=== PATIENT | female | born 1930 | race Caucasian/White ===

== ENCOUNTER 2019-01-20 17:05 | Inpatient (IN) ==
[2019-01-20] MEDS ORDERED: ASPIRIN PO ONE (17:17)
[2019-01-20 18:15] LABS: BASO# 0.04 X1000 (0.0-0.2); BASO% 0.5 % (0.0-0.8); EOS# 0.15 X1000 (0.0-0.7); EOS% 1.8 % (0.0-10.0); HEMATOCRIT 38.4 % (37.0-47.0); HEMOGLOBIN 12.7 g/dL (12.0-16.0); IMM GRAN# 0.01 X1000 (0.0-0.04); IMM GRAN% 0.1 % (0.0-0.5); LYMPH# 1.54 X1000 (1.2-3.4); LYMPH% 18.9 % (20.5-51.1); MCH 34.5 PG (27-31); MCHC 33.1 g/dL (33-37); MCV 104.3 FL (81-99); MONO# 0.87 X1000 (0.11-0.59); MONO% 10.7 % (1.7-9.3); MPV 11.2 FL (7.4-10.4); NEUT# 5.55 X1000 (1.4-6.5); PLT 238 X1000 (130-400); RBC 3.68 XMIL (4.2-5.4); RDW 14.8 % (11.5-14.5); WBC 8.16 X1000 (4.8-10.8)
[2019-01-20 18:34] LABS: ALBUMIN 4.2 g/dL (3.5-5.0); CALCIUM 8.7 mg/dL (8.8-10.2); POTASSIUM 3.5 mmol/L (3.5-5.1); TOTAL BILIRUBIN 0.7 mg/dL (0.20-1.00); TOTAL PROTEIN 6.4 g/dL (6.3-8.3)
[2019-01-20 18:35] LABS: INR 2.99; PROTIME 32.9 Seconds (11.0-16.0); PTT 49.6 Seconds (22.3-41.8)
--- NOTE | 2019-01-20 18:41 | PROVIDER DOCUMENTATION ---
This chart was entered by Leobardo Jones Scribe, acting as scribe for Chidi Parks DO. HPI-Cardiac General - General Chief Complaint: Shortness of Breath Stated Complaint: HEART POUNDING / SOB Time Seen by Provider: 01/20/19 17:31 Source: patient Allergies/Adverse Reactions: Patient Allergies Allergy/AdvReac Type Severity Reaction Status Date / Time No Known Allergies Allergy Verified 02/17/17 10:33 Home Medications: Home Medication List Medication Instructions Recorded Confirmed Last Taken Type Acetaminophen with Codeine 1 ea PO Q4H PRN PRN #12 tab 02/17/17 Unknown Rx [Tylenol with Codeine #3] Sulfamethoxazole/Trimethoprim 1 ea PO BID #10 tab 02/17/17 Unknown Rx [Bactrim Ds Tablet] - History of Present Illness-Cardiac Nature of Presenting Problem: 88 yof presents to the ed with c/o chest pains (middle). pt states started last night and went away pt didn't tell family last night , then started back this morning. pt states " hard to breath." pt states no stroke symptoms. Location: reports: substernal Quality of Pain: reports: pressure ("heavyness") Onset/Duration: last night Timing: intermittent Context/Activities at Onset: reports: none Modifying Factors: improves with: nothing Palpitation Quality: N/A History of arrythmia: reports: A-Fib Recent use of:: reports: no stimulants Nitro Today/Relief: reports: no nitro taken today Aspirin Treatment Today: reports: no aspirin today Associated Symptoms: reports: shortness of breath. denies: abdominal pain, back pain, diaphoresis, edema, fever/chills, rash Similar Symptoms Previously?: No Recently Seen Here or By Another Healthcare Provider: No Review of Systems - Adult - REVIEW OF SYSTEMS - ADULT Constitutional: reports: no symptoms reported. denies: chills, fever Eyes: reports: no symptoms reported Ears, Nose, Mouth & Throat: reports: no symptoms reported Cardiovascular: reports: see HPI, chest pain Respiratory: reports: see HPI, shortness of breath. denies: dyspnea on exertion, wheezing Gastrointestinal: denies: abdominal pain, diarrhea, nausea, vomiting Genitourinary: reports: no symptoms reported Musculoskeletal: reports: no symptoms reported Integumentary: reports: no symptoms reported Neurological: reports: no symptoms reported Psychiatric: reports: no symptoms reported Endocrine: reports: no symptoms reported Hematologic/Lymphatic: reports: no symptoms reported Allergic/Immunologic: reports: no symptoms reported All Other Systems: Reviewed and Negative Past History - Adult - PAST MEDICAL HISTORY-ADULT Review of Records: reports: Old Records Reviewed, Nursing Assessment Review, Medications Reviewed, Social history reviewed & non-contributory. Major Childhood Illnesses: reports: denies history Cardiovascular: reports: A-Fib, HTN Respiratory: reports: denies history Gastrointestinal: reports: denies history Obstetrical/Gynecological: reports: denies history Genitourinary: reports: denies history Musculoskeletal: reports: denies history Neurological: reports: denies history Endocrine/Immune: reports: Diabetes Other Conditions: reports: denies history - PRIOR SURGERIES/PROCEDURES Surgical/Procedure History: reports: cholecystectomy - IMMUNIZATION STATUS Childhood Immunizations: See Nurse Assessment Flu Vaccine: See Nurse Assessment - FAMILY HISTORY Family History: reviewed, not pertinent - SOCIAL HISTORY Smoking: denies Substance Use: denies Living Situation: family Physical Exam-General - PHYSICAL EXAM-ADULT Initial Vital Signs Reviewed: Yes - CONSTITUTIONAL General Appearance: appears well, alert, mild distress - EYES Eyes: PERRL/EOMI (Lt eye is dilated due to injury can not see out of Lt eye / Rt eye reactive) - HEAD, EARS, NOSE, MOUTH & THROAT HENMT: moist mucous membranes, normal ENT inspection, TMs normal - NECK Neck: non-tender, full range of motion, supple - RESPIRATORY Respiratory: chest non-tender, normal breath sounds, no pleuratic chest pain, no respiratory distress, no accessory muscle use, rales (at the base) - CARDIOVASCULAR Cardiovascular: normal peripheral pulses, regular rate, rhythm, no edema, no gallop, no JVD, no murmur - CHEST (BREASTS) Chest/Breast: deferred - GASTROINTESTINAL (ABDOMEN) Abdominal Exam: normal bowel sounds, non tender, soft, no organomegaly, no pulsatile mass - GENITOURINARY Female Genitalia/Pelvic Exam: deferred Rectal Exam: deferred Hemoccult Exam: deferred - LYMPHATIC Lymphatic: no adenopathy - MUSCULOSKELETAL Back Exam: normal inspection, no CVA tenderness, no vertebral tenderness Extremity: normal range of motion, non-tender, normal gait, normal inspection, no pedal edema - SKIN Integumentary: normal color, normal turgor, warm/dry - NEUROLOGIC Neurologic: grossly normal, no motor/sensory deficits - PSYCHIATRIC Psych/Mental Status: normal mood/affect, normal thought content, normal thought process, oriented x 3 - HEART Score HEART Score: History: Slightly Suspicious HEART Score: ECG: Normal HEART Score: Age: > or = 65 Years HEART Score: Risk Factors for Atherosclerotic Disease: 1 or 2 Risk Factors HEART Score: Troponin: < or = Normal Limit Total HEART Score:: 3 Progress - PLAN OF CARE/RESULTS Progress/Plan/Lab Results: Vital Signs - 8 hr 01/20/19 17:09 Pulse Rate 86 Respiratory Rate 19 Blood Pressure 198/82 O2 Sat by Pulse Oximetry 96 Laboratory Results - last 24 hr 01/20/19 01/20/19 01/20/19 17:28 17:28 17:28 WBC 8.16 RBC 3.68 L Hgb 12.7 Hct 38.4 MCV 104.3 H MCH 34.5 H MCHC 33.1 RDW Std Deviation 14.8 H Plt Count 238 MPV 11.2 H Immature Gran % (Auto) 0.1 Neut % (Auto) 68.0 Lymph % (Auto) 18.9 L [place] % (Auto) 10.7 H Eos % (Auto) 1.8 Baso % (Auto) 0.5 Immature Gran # (Auto) 0.01 Neut # (Auto) 5.55 Lymph # (Auto) 1.54 [place] # (Auto) 0.87 H Eos # (Auto) 0.15 Baso # (Auto) 0.04 PT INR PTT (Actin FS) Sodium 142 Potassium 3.5 Chloride 107 Carbon Dioxide 20 L Anion Gap 15 BUN 14 Creatinine 1.0 H Estimated GFR/1.73 m2 52 BUN/Creatinine Ratio 14 Glucose 143 H Calculated Osmolality 286 Calcium 8.7 L Total Bilirubin 0.70 AST 48 H ALT 39 H Alkaline Phosphatase 101 Creatine Kinase 70 Troponin T [id number] Pept 3577 H Total Protein 6.4 Albumin 4.2 Globulin 2.0 Albumin/Globulin Ratio 2.0 01/20/19 01/20/19 17:28 17:28 WBC RBC Hgb Hct MCV MCH MCHC RDW Std Deviation Plt Count MPV Immature Gran % (Auto) Neut % (Auto) Lymph % (Auto) [place] % (Auto) Eos % (Auto) Baso % (Auto) Immature Gran # (Auto) Neut # (Auto) Lymph # (Auto) [place] # (Auto) Eos # (Auto) Baso # (Auto) PT 32.9 H INR 2.99 PTT (Actin FS) 49.6 H Sodium Potassium Chloride Carbon Dioxide Anion Gap BUN Creatinine Estimated GFR/1.73 m2 BUN/Creatinine Ratio Glucose Calculated Osmolality Calcium Total Bilirubin AST ALT Alkaline Phosphatase Creatine Kinase Troponin T < 0.010 [id number]-[id number] Pept Total Protein Albumin Globulin Albumin/Globulin Ratio Orders Category Date Time Status Cardiac Monitoring DIRECTED Care 01/20/19 17:17 Completed Oxygen Therapy- ED Nursing DIRECTED Care 01/20/19 17:17 Active Saline Loc NOW Care 01/20/19 17:17 Completed CHEST-2 VIEWS [RAD] Stat Exams 01/20/19 17:17 Taken CBC WITH ELECTRONIC DIFF [HEME] Stat Lab 01/20/19 17:28 Completed CK PROFILE [SP CHEM] Stat Lab 01/20/19 17:28 Completed COMPREHENSIVE METABOLIC PANEL [CHEM] Stat Lab 01/20/19 17:28 Completed PRO B-NATRIURETIC PEPTIDE Stat Lab 01/20/19 17:28 Completed PROTIME WITH INR [COAG] Stat Lab 01/20/19 17:28 Completed PTT [COAG] Stat Lab 01/20/19 17:28 Completed TROPONIN T Stat Lab 01/20/19 17:28 Completed Aspirin Med 01/20/19 17:17 Discontinued 325 mg PO NOW ONE Furosemide [Lasix] Med 01/20/19 18:46 Discontinued 20 mg IV NOW ONE CP/SOB/Palp >45 yrs of Age Stat Oth 01/20/19 17:17 Ordered EKG [EKG] Stat Ther 01/20/19 17:17 Ordered Result Diagrams: 01/20/19 17:28 01/20/19 17:28 - REASSESSMENT Reassessment #1 Time Reassessed: 18:38 Status: improving (no pin at this time) - EKG 1 Time of EKG reading by physician:: 17:45 EKG Read and Signed by:: Chidi Parks EKG Interpretation (*Must complete 3 of following elements*): Abnormal Rate: 67 Rhythm: Atrial fibrillation [place]: normal QRS: normal [place] Interval: normal ST Wave: normal - CONSULTS/PCP/HOSPITALIST Notification Time Discussed: 18:55 Consult Disposition: Will see in ED - CHANGE OF SHIFT REPORT (ED Provider) 1 Items Pending: Labs Departure - Departure Date of Disposition Decision: 01/20/19 Time of Disposition Decision: 18:55 DIAGNOSIS: CHF (congestive heart failure) Qualifiers: Heart failure type: other Qualified Code(s): I50.9 - Heart failure, unspecified Disposition: ADMITTED INPATIENT 09 Certified Medical Emergency: Emergent Condition: Fair - Critical Care Note This patient required my direct & personal management of CC.: No Attestation - Physician/ CHRIS Attestation Patient care was provided by Advanced Practice Provider:: No The physician spent face to face time with patient:: Yes Advanced Practice Provider documentation review:: Supervising physician onsite and consulted in the evaluation and care of this patient. The physician did have a face to face encounter with the patient. This chart was documented by the indicated scribe, (Leobardo Jones, Linda) and accurately reflects the services I performed and decisions made by , Chidi Parks DO, as attested by the provider's signature.
[2019-01-20] MEDS ORDERED: LASIX IV ONE (18:46)
[2019-01-20] MEDS ORDERED: ZOFRAN IV PRN ×2 (18:53→18:55)
[2019-01-20] MEDS ORDERED: TYLENOL PO PRN ×2 (18:53→18:55)
--- NOTE | 2019-01-20 18:56 | Diag Imaging Result Doc PS360 ---
EXAM: CHEST-2 VIEWS - 01/20/2019 HISTORY: sob palpitations TECHNIQUE: Chest two views COMPARISON: None. FINDINGS: Heart size appears mildly enlarged. There is mild interstitial marking prominence which may relate to scarring/fibrosis. There is possibly a small amount of focal infiltrate at the posterior base of the chest which is most apparent on the lateral view. There is no substantial pleural effusion or pneumothorax identified. There is thoracic spondylosis noted. IMPRESSION: Mild cardiomegaly. Apparent mild interstitial scarring/fibrosis. Possible small area of pneumonia at posterior base of chest. Electronically signed by Mainor Barnes 01/20/2019 6:54 PM
--- NOTE | 2019-01-20 19:49 | HISTORY AND PHYSICAL ---
CHIEF COMPLAINT: Shortness of breath. HISTORY OF PRESENT ILLNESS: The patient is a very pleasant 88-year-old female who has a known history of atrial fibrillation. She takes Coumadin for this. She has no previous diagnosis of [place] or congestive heart failure. She notes that last night she started feeling as though she was having a hard time breathing, could not catch her breath. Denies any fevers or chills. Denies any real swelling of her lower extremities. She states that she could not lie flat in the bed. Denies any chest pains. She does note that she had palpitations, but this is not uncommon. ALLERGIES: No known drug allergies. MEDICATIONS: Coumadin, otherwise she does not remember. REVIEW OF SYSTEMS: The patient complains of chest heaviness and tightness, shortness of breath and dyspnea on exertion. She has some swelling in her lower extremities. Denies any fevers or chills, cough, congestion. Denies dysuria. No frequency or urgency. Denies polyuria or polydipsia. Denies skin rashes, weight loss or weight gain. Denies melena, hematochezia, constipation or diarrhea. PAST MEDICAL HISTORY: Hypertension, atrial fibrillation, diabetes. PAST SURGICAL HISTORY: She has had a cholecystectomy. FAMILY HISTORY: Noncontributory. SOCIAL HISTORY: The patient does not smoke or drink. She lives at home. She is . PHYSICAL EXAMINATION: VITAL SIGNS: Reviewed. She is afebrile. Pulse 86 and irregular, respiratory 19, BP 198/82, saturating 96% on room air. GENERAL: The patient is awake. She is in no respiratory distress. She is lying in the bed with the head propped up at 30 degrees. HEENT: Normocephalic. NECK: Supple. CARDIOVASCULAR: Irregular rhythm. Rate controlled. CHEST: Decreased breath sounds bilaterally but equal. No current rhonchi. No crackles. No wheezing. ABDOMEN: Soft, nondistended. EXTREMITIES: Moves all extremities. She has compression stockings on bilaterally. NEUROLOGIC: No focal changes. She is awake, alert and oriented x3. LABORATORY DATA: INR 2.99. Creatinine 1.0, potassium 3.5, glucose 143. ASSESSMENT: 1. Congestive heart failure. 2. Diabetes with hyperglycemia at 142. 3. Hypercoagulable state due to Coumadin. 4. Atrial fibrillation. PLAN: We are going to admit the patient to the hospital, rule out [place]. Check an echocardiogram in the a.m. We will follow. Further orders as needed. Place her on Lasix and oxygen, and follow. cc: Abraham Patel MD
[2019-01-20] MEDS ORDERED: LASIX ONE (20:30)
[2019-01-20] MEDS ORDERED: ASPIRIN ONE (20:30)
[2019-01-20] MEDS ORDERED: APRESOLINE IV PRN (21:10)
[2019-01-20 21:25] LABS: URINE SOURCE CATH
[2019-01-20 21:29] LABS: BILIRUBIN URINE NEGATIVE (NEGATIVE); BLOOD URINE NEGATIVE (NEGATIVE); COLOR STRAW; GLUCOSE URINE NEGATIVE (NEGATIVE); KETONE URINE NEGATIVE (NEGATIVE); LEUKOCYTES URINE NEGATIVE (NEGATIVE); NITRITE URINE NEGATIVE (NEGATIVE); PH URINE 5.5; PROTEIN URINE NEGATIVE (NEGATIVE); SP GRAVITY URINE 1.008; TURBIDITY URINE CLEAR (CLEAR); UROBILINOGEN URINE NORMAL (NORMAL)
[2019-01-20 21:30] LABS: UR EPITHELIAL CELLS <10 /HPF (<10); URINE BACTERIA NEGATIVE /HPF; URINE RBC <10 /HPF (<10); URINE WBC <10 /HPF (<10)
[2019-01-20 22:03] LABS: AGAP 15; ALBUMIN 4.3 g/dL (3.5-5.0); ALKALINE PHOSPHATASE 99 U/L (32-104); BUN 13 mg/dL (8-22); CALCIUM 8.9 mg/dL (8.8-10.2); CHLORIDE 107 mmol/L (98-107); COSMO 291; CREATININE 0.8 mg/dL (0.5-0.9); ESTIMATED GFR > 60; GLUCOSE 136 mg/dL (70-104); GOT 61 U/L (10-30); GPT 50 U/L (10-36); POTASSIUM 3.5 mmol/L (3.5-5.1); SODIUM 145 mmol/L (136-145); TCO2 24 mmol/L (25-35); TOTAL PROTEIN 6.6 g/dL (6.3-8.3)
--- NOTE | 2019-01-21 00:11 | EKG Report ---
Test Performed on : 01/20/2019 5:45:34 PM Test Reason : sob palpitations hx a fib Blood Pressure : / mmHG Vent. Rate : 067 BPM Atrial Rate : 067 BPM P-R Int : 000 ms QRS Dur : 088 ms QT Int : 392 ms P-R-T Axes : 000 043 017 degrees QTc Int : 414 ms Atrial fibrillation. Abnormal ECG When compared with ECG of 08-AUG-2007 09:14, Atrial fibrillation. has replaced Sinus rhythm. Unconfirmed Result
[2019-01-21 04:06] LABS: AGAP 16; BUN 12 mg/dL (8-22); CALCIUM 9.2 mg/dL (8.8-10.2); CHLORIDE 101 mmol/L (98-107); COSMO 290; CREATININE 0.8 mg/dL (0.5-0.9); ESTIMATED GFR > 60; GLUCOSE 131 mg/dL (70-104); PHOSPHORUS 2.9 mg/dL (2.7-4.5); POTASSIUM 3.6 mmol/L (3.5-5.1); SODIUM 145 mmol/L (136-145); TCO2 28 mmol/L (25-35)
[2019-01-21 04:09] LABS: CHOLESTEROL 140 mg/dL (0-200); HDL 54 mg/dL (45-65); LDL 64 mg/dL; TRIGLYCERIDES 112 mg/dL (35-135); VLDL 22 mg/dL
[2019-01-21 04:28] LABS: HEMATOCRIT 41.6 % (37.0-47.0); HEMOGLOBIN 13.8 g/dL (12.0-16.0); MCH 34.6 PG (27-31); MCHC 33.2 g/dL (33-37); MCV 104.3 FL (81-99); MPV 11.2 FL (7.4-10.4); RBC 3.99 XMIL (4.2-5.4); RDW 14.8 % (11.5-14.5); WBC 8.76 X1000 (4.8-10.8)
[2019-01-21] MEDS ORDERED: LASIX IV SCH ×2 (06:00→07:00)
[2019-01-21 12:19] LABS: INR 1.86; PROTIME 22.5 Seconds (11.0-16.0)
--- NOTE | 2019-01-21 15:51 | DISCHARGE SUMMARY ---
ADMISSION DATE: 01/20/2019 DISCHARGE DATE: 01/21/2019 HISTORY: Patient was admitted with congestive heart failure exacerbation. Echo was performed and is currently still pending. Patient notes that she is feeling much better and is asking to go home. 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 Thibodeaux. We are going to discharge the patient home. She will continue Lasix only as needed, continue to take Coumadin for her atrial fibrillation, which is currently rate controlled. Greater than 30 minutes was spent in total care. cc: Abraham Patel MD
[2019-01-21 16:14] VITALS: BP 140/77
[2019-01-21] MEDS ORDERED: COSOPT OPHTH SOLN BOTH EYES SCH (21:00)
[2019-01-21] MEDS ORDERED: AMBIEN PO SCH (21:00)
[2019-01-21] MEDS ORDERED: GLUCOPHAGE PO SCH (21:00)
[2019-01-21] MEDS ORDERED: TENORMIN PO SCH (21:00)
[2019-01-21] MEDS ORDERED: XALATAN 0.005% OPH SOLN LEFT EYE SCH (21:00)
--- NOTE | 2019-01-22 07:58 | ECHO REPORT ---
ORDER DATE: 01/21/2019 INTERPRETING PHYSICIAN: Dr. Sorto REQUESTING PHYSICIAN: Dr. Patel CLINICAL INDICATIONS: An 88-year-old female with atrial fibrillation, dyspnea, palpitations.CHF. M-MODE MEASUREMENTS: Right ventricle: cm. Left ventricle end diastole: 4.1 cm. Left ventricle end systole: 2.4 cm. Posterior wall: 1.1 cm. Interventricular septum: 1.0 cm. Left atrium: 4.5 cm. Aortic root: 3.4 cm. SUMMARY OF 2-DIMENSIONAL IMAGIN. Left ventricular function is normal. Ejection fraction estimated at 65% to 70%. There is no wall motion abnormality noted. The chamber is small. 2. Aortic valve has 3 cusps. They open normally. Color flow mapping is unremarkable. 3. Mitral annulus shows dense calcification. Color flow mapping of the mitral valve shows minimal degree of regurgitation. 4. The pulse wave Doppler of mitral inflow shows a single filling wave. The patient is in atrial fibrillation. 5. The left atrium is significantly enlarged. Diastolic function is undetermined or indeterminate at this time. 6. The pulmonic valve shows mild degree of regurgitation. Pulmonary diastolic pressure appears to be in the order of 12 mmHg to 17 mmHg. 7. Tricuspid valve shows moderate degree of regurgitation. Pulmonary systolic pressure is estimated at 42 to 47 mmHg. 8. The right sided chambers appear to be within normal range. Right atrium may be at the upper limits of normal. 9. There is no pericardial effusion, mass or thrombus. Clinical correlation is recommended. cc: MD Abraham Walden MD [facility]
[2019-01-22] MEDS ORDERED: ALDACTONE PO SCH (09:00)
[2019-01-22] MEDS ORDERED: PRINIVIL PO SCH (09:00)
[2019-01-22] MEDS ORDERED: ALDACTAZIDE 25/25 PO SCH (09:00)
[2019-01-22] MEDS ORDERED: LASIX IV SCH (09:00)
[2019-01-22] MEDS ORDERED: HYDROCHLOROTHIAZIDE PO SCH (09:00)
--- NOTE | 2019-01-23 21:58 | DISCHARGE SUMMARY ---
ADMISSION DATE: 01/20/2019 DISCHARGE DATE: 01/21/2019 DISCHARGE DIAGNOSES: 1. Congestive heart failure with mild exacerbation. 2. Diabetes with hyperglycemia. 3. Hypercoagulable state due to Coumadin. 4. Atrial fibrillation. 5. Hypertension. CONSULTATIONS: None. PROCEDURES: None. BRIEF HOSPITAL COURSE: The patient is a very pleasant 88-year-old female who presented to the hospital with increased work of breathing, increased shortness of breath, diagnosed with mild congestive heart failure exacerbation. Thankfully, she had no further complaint. On discharge, she is awake, alert. She is ambulating without any difficulty. DISPOSITION: The patient will be discharged home. She will follow up outpatient with treatment facility of choice. She will continue her home medications. She will continue Lasix only as needed. TIME SPENT: Greater than 30 minutes was spent in total care. No other changes were made in her home medications, diet, or activity. cc: Abraham Patel MD
== END 2019-01-21 17:30 | disposition home or self-care (01) | DRG 293 ==
LOC: P.ED 17:05 → P.MEDSURG 20:38
PROVIDERS: ATTEND Family Medicine